=== PATIENT | female | born 1980 | race Asian ===

== ENCOUNTER 2019-02-21 02:57 | Emergency (ER) | payer OTHER ==
[~2019-02-21] VITALS: Ht 170.2 cm; Wt 56.9 kg
[2019-02-21 03:05] VITALS: Ht 170.2 cm; Wt 56.9 kg
[2019-02-21 05:45] VITALS: BP 107/49
== END 2019-02-21 05:45 | disposition home or self-care (01) ==
LOC: ED 02:57
DX: S29.011A Strain of muscle and tendon of front wall of thorax, initial encounter (principal); H66.91 Otitis media, unspecified, right ear; X58.XXXA Exposure to other specified factors, initial encounter; Y93.89 Activity, other specified; Y92.89 Other specified places as the place of occurrence of the external cause; Y99.8 Other external cause status